=== PATIENT | male | born 1985 | race Asian ===

== ENCOUNTER 2017-04-27 19:51 | Emergency (ER) | payer BC ==
--- NOTE | 2017-04-27 20:07 | EDPHY ---
H & P Stated Complaint: sore throat, genralized pain, subj fever, cough, since this morning HPI/ROS: HPI CHIEF COMPLAINT: Sore throat, muscle aches, subjective fever HISTORY OF PRESENT ILLNESS: This patient otherwise healthy 31-year-old male, no significant medical history does not take any daily medications, presents emergency room by private vehicle with 1 day or less than 12 hours of sore throat, muscle aches, and fatigue. Subjective fever. But no recorded temperature at home. Endorses a dry cough. No headache or neck pain. No neck stiffness, no abdominal pain or vomiting. Main complaint is sore throat. Sick contacts at home at bedside states she had similar illness earlier in the week but is now better. Past Medical History: No significant medical history Past Surgical History: No surgical history Social History: Denies daily use of drugs alcohol tobacco products Family History: Noncontributory ROS REVIEW OF SYSTEMS: A comprehensive 10 point review of systems is otherwise negative aside from elements mentioned in the history of present illness. Exam Constitutional appears well nontoxic, triage nursing summary reviewed, vital signs reviewed, awake/alert. Eyes normal conjunctivae and sclera, EOMI, PERRLA. HENT posterior pharynx mild erythema, no exudate no significant swelling, uvula midline, bilateral TMs are clear, moist mucus membranes, no epistaxis, neck supple/ no meningismus, no raccoon eyes. Respiratory clear to auscultation bilaterally, normal breath sounds, no respiratory distress, no wheezing. Cardiovascular rate normal, regular rhythm, no murmur, no edema, distal pulses normal. Gastrointestinal soft, non-tender, no rebound, no guarding, normal bowel sounds, no distension, no pulsatile mass. Genitourinary no CVA tenderness. Musculoskeletal no midline vertebral tenderness, full range of motion, no calf swelling, no tenderness of extremities, no meningismus, good pulses, neurovascularly intact. Skin pink, warm, & dry, no rash, skin atraumatic. Neurologic awake, alert and oriented x 3, AAOx3, moves all 4 extremities equally, motor intact, sensory intact, CN II-XII intact, normal cerebellar, normal vision, normal speech. Psychiatric normal mood/affect. Heme/Lymph/Immune no lymphadenopathy. Differential Diagnosis: Includes but is not limited to in a particular order, viral syndrome, viral pharyngitis, strep pharyngitis, upper respiratory tract infection, sinusitis. Medical Decision Making: Plan for this patient rapid strep. Ibuprofen. Re-evaluation: 2050: This patient appears well nontoxic resting comfortably no acute distress vital signs are stable. No fever. Rapid strep is negative. However given the appearance of the posterior pharynx deep erythema without significant exudate will treat for strep. Azithromycin. Ibuprofen encouraged lots of fluids. Patient understands return emergency room if there is any worsening symptoms includes high fever, vomiting or severe pain. Worsening of symptoms. Source: Patient - Personal History Current Tetanus/Diphtheria Vaccine: Unsure Current Tetanus Diphtheria and Acellular Pertussis (TDAP): Unsure - Medical/Surgical History Hx Asthma: No Hx Chronic Respiratory Disease: No Hx Diabetes: No Hx Cardiac Disease: No Hx Renal Disease: No Hx Cirrhosis: No Hx Alcoholism: No Hx HIV/AIDS: No Hx Splenectomy or Spleen Trauma: No Other PMH: denies - Social History Smoking Status: Current some day smoker Constitutional: Initial Vital Signs Temperature (C) 37.5 C 04/27/17 20:01 Heart Rate 84 04/27/17 20:01 Respiratory Rate 16 04/27/17 20:01 Blood Pressure 94/53 L 04/27/17 20:01 O2 Sat (%) 96 04/27/17 20:01 O2 Delivery Mode Room Air Allergies/Adverse Reactions: No Known Allergies Allergy (Unverified 04/27/17 20:04) Home Medications: Medication Instructions Recorded AZITHROMYCIN [Z-PACK] 250 mg PO DAILY #6 tab 04/27/17 Ibuprofen [Motrin (*)] 800 mg PO Q6-8PRN #7 tab 04/27/17 Medical Decision Making - Data Points Laboratory Results: 04/27/17 04/27/17 Unknown 20:11 Group A Strep Screen NEGATIVE (NEGATIVE) Group A Strep DNA Pending Medications Given: Discontinued Medications Ibuprofen (Motrin) 800 mg PO EDNOW ONE Stop: 04/27/17 20:11 Last Admin: 04/27/17 20:13 Dose: 800 mg Departure - Departure Disposition: Home, Routine, Self-Care Clinical Impression: Pharyngitis Qualifiers: Pharyngitis/tonsillitis etiology: unspecified etiology Qualified Code(s): J02.9 - Acute pharyngitis, unspecified Condition: Good Instructions: Pharyngitis (ED) Additional Instructions: 1.Return emergency room if you have worsening symptoms questions or concerns. 2. Stay well-hydrated drink lots of fluids. 3. You may alternate every Tylenol or Motrin every 4-6 hours. Referrals: NONE *PRIMARY CARE P,. [Primary Care Provider] - As per Instructions Prescriptions: AZITHROMYCIN [Z-PACK] 250 mg PO DAILY #6 tab Ibuprofen [Motrin (*)] 800 mg PO Q6-8PRN #7 tab
[2017-04-27] MEDS ORDERED: IBUPROFEN 200 MG TAB PO ONE (20:10)
[2017-04-27] MEDS ORDERED: NS 1,000 ML IV ONE ×2 (21:08→21:56)
--- NOTE | 2017-04-27 22:03 | CPEKG ---
Heart Rate: 75 RR Interval: 800 P-R Interval: 152 QRSD Interval: 84 QT Interval: 356 QTC Interval: 398 P [place]: 77 QRS [place]: 87 T Wave [place]: 64 EKG Severity - BORDERLINE ECG - EKG Impression: SINUS RHYTHM EKG Impression: PROBABLE LEFT ATRIAL ABNORMALITY Electronically Signed By: Ravi Adan 30-Apr-2017 12:39:01
[2017-04-27 22:38] LABS: % IMMATURE GRANULYOCYTES 0.5 % (0.0-1.1); ABSOLUTE IMMATURE GRANULOCYTES 0.06 10^3/uL (0.00-0.10); ADD DIFF? NO; ADD MORPH? NO; ADD SCAN? NO; ATYPICAL LYMPHOCYTE FLAG 0 (0-99); FRAGMENT RBC FLAG 0 (0-99); HEMATOCRIT 38.8 % (40.0-51.0); HEMOGLOBIN 13.1 g/dL (13.7-17.5); LEFT SHIFT FLG 10 (0-99); LIPEMIA HEMOLYSIS FLAG 90 (0-99); MEAN CELL HEMOGLOBIN CONCENTR. 33.8 g/dL (32.4-36.7); MEAN CELL VOLUME 85.8 fL (81.5-99.8); MEAN PLATELET VOLUME 12.6 fL (8.7-11.7); PLATELET CLUMPS FLAG 20 (0-99); PLATELET COUNT 106 10^3/uL (150-400); RED BLOOD CELL COUNT 4.52 10^6/uL (4.40-6.38); RED CELL DISTRIBUTION WIDTH 12.2 % (11.5-15.2)
[2017-04-27 22:45] LABS: ANION GAP 7 mEq/L (8-16); CALCIUM 7.5 mg/dL (8.5-10.4); CARBON DIOXIDE 22 mEq/l (22-31); CHLORIDE 105 mEq/L (97-110); CREATININE 0.8 mg/dL (0.7-1.3); GLOMERULAR FILTRATION RATE > 60; GLUCOSE 123 mg/dL (70-100); POTASSIUM 3.4 mEq/L (3.5-5.2); SODIUM 134 mEq/L (134-144)
[2017-04-27 23:06] VITALS: BP 102/62; PULSE 63; RESP 14; TEMP 98.8; O2SAT 96
== END 2017-04-27 23:11 | disposition home or self-care (01) ==
DX: J02.9 Acute pharyngitis, unspecified (principal); F17.200 Nicotine dependence, unspecified, uncomplicated

== ENCOUNTER → 2018-06-28 | Outpatient (CLI) | payer BC | LOC: BMCIMAGING 16:08 | PROVIDERS: ATTEND Family Medicine | DX: S22.31XA Fracture of one rib, right side, initial encounter for closed fracture (principal) | CPT/HCPCS: 71101-PO ==